=== PATIENT | male | born 1945 | race Caucasian/White ===

== ENCOUNTER → 2019-09-01 | Outpatient (CLI) | payer MEDICARE, OTHER ==
[~2019-09-01] MED LIST: DIATRIZOATE 30% 300 ML (CYSTOGRAFIN) VIAL UR ONE
--- NOTE | 2019-09-01 10:18 | Diagnostic Imaging Report ---
EXAMINATION: Urethrocystogram retrograde. INDICATION: Urethral stricture. COMPARISON: There are no prior studies available for comparison. TECHNIQUE: Following aseptic preparation of the skin, a syringe was inserted into the penile urethra and contrast was injected. FINDINGS: The anterior penile urethra is generally unremarkable; however, there is a short segment high-grade (80-90%) stricture of the proximal urethra. There is also another short segment 70-80% stenosis of what is most likely the membranous urethra. The contrast could not be extended beyond the prostatic urethra and there was never any evidence for contrast within the bladder. The patient tolerated the procedure well and was dismissed in good condition. 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 There is also a 70-80% short segment stenosis of the membranous urethra. The prostatic urethra was visualized but there was no clear evidence for extension of the contrast into the bladder. 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 These results were discussed with Dr. Hernandez. Dictated by: Dictated on workstation # [id number]
== END ==
LOC: RAD 08:42
PROVIDERS: ATTEND Urology
DX: N35.919 Unspecified urethral stricture, male, unspecified site (principal)
CPT/HCPCS: 74450